=== PATIENT | female | born 1940 | race Caucasian/White ===

== ENCOUNTER → 2018-02-25 | Outpatient (CLI) | payer MEDICARE, OTHER | LOC: WOUNDCARE 13:05 | PROVIDERS: ATTEND Nurse Practitioner | DX: E11.628 Type 2 diabetes mellitus with other skin complications (principal); S81.802D Unspecified open wound, left lower leg, subsequent encounter; S81.801D Unspecified open wound, right lower leg, subsequent encounter | CPT/HCPCS: 99204 ==

== ENCOUNTER → 2018-03-04 | Outpatient (CLI) | payer MEDICARE, OTHER | LOC: WOUNDCARE 13:07 | PROVIDERS: ATTEND Nurse Practitioner | DX: E11.628 Type 2 diabetes mellitus with other skin complications (principal); S81.801D Unspecified open wound, right lower leg, subsequent encounter; S81.802D Unspecified open wound, left lower leg, subsequent encounter | CPT/HCPCS: 97597 ==

== ENCOUNTER → 2018-03-11 | Outpatient (CLI) | payer MEDICARE, OTHER | LOC: WOUNDCARE 13:15 | PROVIDERS: ATTEND Nurse Practitioner | DX: E11.628 Type 2 diabetes mellitus with other skin complications (principal); S81.802D Unspecified open wound, left lower leg, subsequent encounter; S81.801D Unspecified open wound, right lower leg, subsequent encounter | CPT/HCPCS: 15271 ==

== ENCOUNTER → 2018-03-18 | Outpatient (CLI) | payer MEDICARE, OTHER | LOC: WOUNDCARE 13:04 | PROVIDERS: ATTEND Nurse Practitioner | DX: E11.628 Type 2 diabetes mellitus with other skin complications (principal); S81.802D Unspecified open wound, left lower leg, subsequent encounter; S81.801D Unspecified open wound, right lower leg, subsequent encounter | CPT/HCPCS: 15271 ==

== ENCOUNTER → 2018-03-25 | Outpatient (CLI) | payer MEDICARE, OTHER | LOC: WOUNDCARE 13:08 | PROVIDERS: ATTEND Nurse Practitioner | DX: L03.115 Cellulitis of right lower limb (principal); L97.212 Non-pressure chronic ulcer of right calf with fat layer exposed; L97.222 Non-pressure chronic ulcer of left calf with fat layer exposed; I87.333 Chronic venous hypertension (idiopathic) with ulcer and inflammation of bilateral lower extremity; E11.622 Type 2 diabetes mellitus with other skin ulcer; I70.232 Atherosclerosis of native arteries of right leg with ulceration of calf; I70.242 Atherosclerosis of native arteries of left leg with ulceration of calf | CPT/HCPCS: 99213 ==

== ENCOUNTER → 2018-04-01 | Outpatient (CLI) | payer MEDICARE, OTHER | LOC: WOUNDCARE 12:46 | PROVIDERS: ATTEND Nurse Practitioner | DX: L97.212 Non-pressure chronic ulcer of right calf with fat layer exposed (principal); L03.115 Cellulitis of right lower limb; L97.222 Non-pressure chronic ulcer of left calf with fat layer exposed; I87.333 Chronic venous hypertension (idiopathic) with ulcer and inflammation of bilateral lower extremity; E11.622 Type 2 diabetes mellitus with other skin ulcer; I70.232 Atherosclerosis of native arteries of right leg with ulceration of calf; I70.242 Atherosclerosis of native arteries of left leg with ulceration of calf | CPT/HCPCS: 11042; 11045 ==

== ENCOUNTER → 2018-04-08 | Outpatient (CLI) | payer MEDICARE, OTHER | LOC: WOUNDCARE 12:40 | PROVIDERS: ATTEND Nurse Practitioner | DX: L97.212 Non-pressure chronic ulcer of right calf with fat layer exposed (principal); L97.222 Non-pressure chronic ulcer of left calf with fat layer exposed; L03.115 Cellulitis of right lower limb; I87.333 Chronic venous hypertension (idiopathic) with ulcer and inflammation of bilateral lower extremity; E11.622 Type 2 diabetes mellitus with other skin ulcer; I70.232 Atherosclerosis of native arteries of right leg with ulceration of calf; I70.242 Atherosclerosis of native arteries of left leg with ulceration of calf | CPT/HCPCS: 11042; 11045; 97597 ==

== ENCOUNTER → 2018-04-22 | Outpatient (CLI) | payer MEDICARE, OTHER | LOC: WOUNDCARE 12:45 | PROVIDERS: ATTEND Nurse Practitioner | DX: L03.115 Cellulitis of right lower limb (principal); L97.212 Non-pressure chronic ulcer of right calf with fat layer exposed; L97.222 Non-pressure chronic ulcer of left calf with fat layer exposed; I87.333 Chronic venous hypertension (idiopathic) with ulcer and inflammation of bilateral lower extremity; E11.622 Type 2 diabetes mellitus with other skin ulcer; I70.232 Atherosclerosis of native arteries of right leg with ulceration of calf; I70.242 Atherosclerosis of native arteries of left leg with ulceration of calf | CPT/HCPCS: 15271 ==

== ENCOUNTER → 2018-04-29 | Outpatient (CLI) | payer MEDICARE, OTHER | LOC: WOUNDCARE 12:49 | PROVIDERS: ATTEND Nurse Practitioner | DX: L03.115 Cellulitis of right lower limb (principal); L97.212 Non-pressure chronic ulcer of right calf with fat layer exposed; I87.333 Chronic venous hypertension (idiopathic) with ulcer and inflammation of bilateral lower extremity; E11.622 Type 2 diabetes mellitus with other skin ulcer; I70.232 Atherosclerosis of native arteries of right leg with ulceration of calf; I70.242 Atherosclerosis of native arteries of left leg with ulceration of calf | CPT/HCPCS: 15271 ==

== ENCOUNTER → 2018-05-06 | Outpatient (CLI) | payer MEDICARE, OTHER | LOC: WOUNDCARE 09:46 | PROVIDERS: ATTEND Nurse Practitioner | DX: L03.115 Cellulitis of right lower limb (principal); L97.212 Non-pressure chronic ulcer of right calf with fat layer exposed; I87.333 Chronic venous hypertension (idiopathic) with ulcer and inflammation of bilateral lower extremity | CPT/HCPCS: 15271 ==

== ENCOUNTER → 2018-05-13 | Outpatient (CLI) | payer MEDICARE, OTHER | LOC: WOUNDCARE 09:42 | PROVIDERS: ATTEND Nurse Practitioner | DX: L97.212 Non-pressure chronic ulcer of right calf with fat layer exposed (principal); L03.115 Cellulitis of right lower limb; I87.333 Chronic venous hypertension (idiopathic) with ulcer and inflammation of bilateral lower extremity; E11.622 Type 2 diabetes mellitus with other skin ulcer; I70.232 Atherosclerosis of native arteries of right leg with ulceration of calf; I70.242 Atherosclerosis of native arteries of left leg with ulceration of calf | CPT/HCPCS: 11042 ==

== ENCOUNTER → 2018-05-20 | Outpatient (CLI) | payer MEDICARE, OTHER | LOC: WOUNDCARE 09:50 | PROVIDERS: ATTEND Nurse Practitioner | DX: I87.333 Chronic venous hypertension (idiopathic) with ulcer and inflammation of bilateral lower extremity (principal); L97.212 Non-pressure chronic ulcer of right calf with fat layer exposed; L03.115 Cellulitis of right lower limb; E11.622 Type 2 diabetes mellitus with other skin ulcer; I70.232 Atherosclerosis of native arteries of right leg with ulceration of calf; I70.242 Atherosclerosis of native arteries of left leg with ulceration of calf | CPT/HCPCS: 11042; 87070; 87075; 87186; 87205 ==

== ENCOUNTER → 2018-06-03 | Outpatient (CLI) | payer MEDICARE, OTHER | LOC: WOUNDCARE 09:50 | PROVIDERS: ATTEND Nurse Practitioner | DX: L97.212 Non-pressure chronic ulcer of right calf with fat layer exposed (principal); I87.333 Chronic venous hypertension (idiopathic) with ulcer and inflammation of bilateral lower extremity; L03.115 Cellulitis of right lower limb | CPT/HCPCS: 11042 ==

== ENCOUNTER → 2018-06-10 | Outpatient (CLI) | payer MEDICARE, OTHER | LOC: WOUNDCARE 09:37 | PROVIDERS: ATTEND Surgery | DX: E11.622 Type 2 diabetes mellitus with other skin ulcer (principal); I87.331 Chronic venous hypertension (idiopathic) with ulcer and inflammation of right lower extremity; L97.212 Non-pressure chronic ulcer of right calf with fat layer exposed | CPT/HCPCS: 11042 ==

== ENCOUNTER → 2018-06-17 | Outpatient (CLI) | payer MEDICARE, OTHER | LOC: WOUNDCARE 09:50 | PROVIDERS: ATTEND Surgery | DX: L97.212 Non-pressure chronic ulcer of right calf with fat layer exposed (principal) | CPT/HCPCS: 11042 ==

== ENCOUNTER → 2018-06-24 | Outpatient (CLI) | payer MEDICARE, OTHER | LOC: WOUNDCARE 09:40 | PROVIDERS: ATTEND Nurse Practitioner | DX: L97.212 Non-pressure chronic ulcer of right calf with fat layer exposed (principal); I87.331 Chronic venous hypertension (idiopathic) with ulcer and inflammation of right lower extremity; E11.622 Type 2 diabetes mellitus with other skin ulcer | CPT/HCPCS: 11042 ==

== ENCOUNTER → 2018-07-01 | Outpatient (CLI) | payer MEDICARE, OTHER | LOC: WOUNDCARE 09:36 | PROVIDERS: ATTEND Nurse Practitioner | DX: E11.622 Type 2 diabetes mellitus with other skin ulcer (principal); L97.212 Non-pressure chronic ulcer of right calf with fat layer exposed; I87.331 Chronic venous hypertension (idiopathic) with ulcer and inflammation of right lower extremity | CPT/HCPCS: 15271; 87070; 87075; 87205 ==

== ENCOUNTER → 2018-07-08 | Outpatient (CLI) | payer MEDICARE, OTHER | LOC: WOUNDCARE 09:54 | PROVIDERS: ATTEND Nurse Practitioner | DX: E11.622 Type 2 diabetes mellitus with other skin ulcer (principal); I87.331 Chronic venous hypertension (idiopathic) with ulcer and inflammation of right lower extremity; L97.212 Non-pressure chronic ulcer of right calf with fat layer exposed | CPT/HCPCS: 15271 ==

== ENCOUNTER → 2018-07-15 | Outpatient (CLI) | payer MEDICARE, OTHER | LOC: WOUNDCARE 09:48 | PROVIDERS: ATTEND Nurse Practitioner | DX: L97.212 Non-pressure chronic ulcer of right calf with fat layer exposed (principal); I87.331 Chronic venous hypertension (idiopathic) with ulcer and inflammation of right lower extremity; E11.622 Type 2 diabetes mellitus with other skin ulcer | CPT/HCPCS: 11042 ==

== ENCOUNTER → 2018-07-30 | Outpatient (CLI) | payer MEDICARE, OTHER | LOC: WOUNDCARE 09:50 | PROVIDERS: ATTEND Surgery | DX: E11.622 Type 2 diabetes mellitus with other skin ulcer (principal); I87.331 Chronic venous hypertension (idiopathic) with ulcer and inflammation of right lower extremity; L97.212 Non-pressure chronic ulcer of right calf with fat layer exposed | CPT/HCPCS: 29581 ==

== ENCOUNTER → 2018-08-05 | Outpatient (CLI) | payer MEDICARE, OTHER | LOC: WOUNDCARE 09:38 | PROVIDERS: ATTEND Surgery | DX: E11.622 Type 2 diabetes mellitus with other skin ulcer (principal); L97.212 Non-pressure chronic ulcer of right calf with fat layer exposed; I87.331 Chronic venous hypertension (idiopathic) with ulcer and inflammation of right lower extremity | CPT/HCPCS: 99212 ==

== ENCOUNTER → 2020-05-08 | Outpatient (CLI) | payer MEDICARE, MEDICAID | LOC: WOUNDCARE 13:22 | PROVIDERS: ATTEND Surgery | DX: L97.221 Non-pressure chronic ulcer of left calf limited to breakdown of skin (principal); L97.211 Non-pressure chronic ulcer of right calf limited to breakdown of skin; I87.333 Chronic venous hypertension (idiopathic) with ulcer and inflammation of bilateral lower extremity; E11.622 Type 2 diabetes mellitus with other skin ulcer; I70.232 Atherosclerosis of native arteries of right leg with ulceration of calf; I70.242 Atherosclerosis of native arteries of left leg with ulceration of calf | CPT/HCPCS: 99214 ==

== ENCOUNTER → 2020-05-17 | Outpatient (CLI) | payer MEDICARE, MEDICAID | LOC: WOUNDCARE 10:15 | PROVIDERS: ATTEND Surgery | DX: E11.622 Type 2 diabetes mellitus with other skin ulcer (principal); E11.52 Type 2 diabetes mellitus with diabetic peripheral angiopathy with gangrene; I87.333 Chronic venous hypertension (idiopathic) with ulcer and inflammation of bilateral lower extremity; I96 Gangrene, not elsewhere classified; L98.491 Non-pressure chronic ulcer of skin of other sites limited to breakdown of skin; L97.221 Non-pressure chronic ulcer of left calf limited to breakdown of skin | CPT/HCPCS: 99214 ==

== ENCOUNTER → 2020-05-22 | Outpatient (CLI) | payer MEDICARE, MEDICAID | LOC: WOUNDCARE 12:48 | PROVIDERS: ATTEND Surgery | DX: L98.491 Non-pressure chronic ulcer of skin of other sites limited to breakdown of skin (principal); L97.222 Non-pressure chronic ulcer of left calf with fat layer exposed; I87.332 Chronic venous hypertension (idiopathic) with ulcer and inflammation of left lower extremity; E11.622 Type 2 diabetes mellitus with other skin ulcer; E11.52 Type 2 diabetes mellitus with diabetic peripheral angiopathy with gangrene | CPT/HCPCS: 99214 ==

== ENCOUNTER → 2020-06-04 | Outpatient (CLI) | payer MEDICARE, MEDICAID | LOC: WOUNDCARE 09:36 | PROVIDERS: ATTEND Surgery | DX: L97.221 Non-pressure chronic ulcer of left calf limited to breakdown of skin (principal); I87.332 Chronic venous hypertension (idiopathic) with ulcer and inflammation of left lower extremity; E11.622 Type 2 diabetes mellitus with other skin ulcer; E11.52 Type 2 diabetes mellitus with diabetic peripheral angiopathy with gangrene | CPT/HCPCS: 99213 ==

== ENCOUNTER → 2020-06-18 | Outpatient (CLI) | payer MEDICARE, MEDICAID | LOC: WOUNDCARE 09:46 | PROVIDERS: ATTEND Surgery | DX: L97.222 Non-pressure chronic ulcer of left calf with fat layer exposed (principal); I87.332 Chronic venous hypertension (idiopathic) with ulcer and inflammation of left lower extremity; E11.622 Type 2 diabetes mellitus with other skin ulcer; E11.52 Type 2 diabetes mellitus with diabetic peripheral angiopathy with gangrene | CPT/HCPCS: 11042 ==

== ENCOUNTER → 2020-06-25 | Outpatient (CLI) | payer MEDICARE, MEDICAID | LOC: WOUNDCARE 10:13 | PROVIDERS: ATTEND Surgery | DX: L97.222 Non-pressure chronic ulcer of left calf with fat layer exposed (principal); I87.332 Chronic venous hypertension (idiopathic) with ulcer and inflammation of left lower extremity; E11.622 Type 2 diabetes mellitus with other skin ulcer; E11.52 Type 2 diabetes mellitus with diabetic peripheral angiopathy with gangrene | CPT/HCPCS: 11042; G0463 ==

== ENCOUNTER → 2020-07-02 | Outpatient (CLI) | payer MEDICARE, MEDICAID | LOC: WOUNDCARE 10:02 | PROVIDERS: ATTEND Surgery | DX: E11.628 Type 2 diabetes mellitus with other skin complications (principal); L97.222 Non-pressure chronic ulcer of left calf with fat layer exposed; I87.332 Chronic venous hypertension (idiopathic) with ulcer and inflammation of left lower extremity; E11.40 Type 2 diabetes mellitus with diabetic neuropathy, unspecified; M06.9 Rheumatoid arthritis, unspecified | CPT/HCPCS: 99212 ==